=== PATIENT | female | born 1960 | race Hispanic/Latino ===

== ENCOUNTER 2025-04-04 17:02 | Emergency (ER) | payer BC ==
[~2025-04-04] VITALS: Ht 157.5 cm; Wt 72.6 kg
--- NOTE | 2025-04-04 19:12 | NUR ---
PT CARE ASSUMED AT THIS TIME
--- NOTE | 2025-04-04 20:06 | ERN ---
General Chief Complaint: Chest Wall Pain Stated Complaint: CHRONIC HEADACHE, CHEST PRESSUE X 7 MONTHS Time Seen by MD: 17:14 Time Seen by Midlevel: 17:14 Source: patient History of Present Illness Initial Comments 64-year-old female presents to the emergency department evaluation of left-sided neck pain. Patient states her neck pain has been intermittently worsening for the past eight months. Recently she was seen at [facility] for the same complaint. She had a CT scan performed which showed a C2 lytic lesion compressing on the nerve root. She was given pain medication and told to follow up outpatient. She saw specialist [place] but ultimately decided to [place]. He saw her primary care doctor earlier today who reviewed the CT scan findings and encouraged her to report to the ER for further evaluation. On arrival patient is specifically denies any weakness or numbness to her upper extremities. However she has significant amount of pain to the cervical region. Denies any recent falls. Allergies: Coded Allergies: No Known Allergies (Unverified Allergy, Unknown, 04/04/25) Past Medical History Past Medical History: Hypertension Medical History Other: CHRONIC PAIN TO HEAD, NECK, CHEST Past Surgical History: BTL ROS Dictation CONSTITUTIONAL: Negative except for HPI HEAD/FACE: Negative except for HPI EENT: Negative except for HPI RESPIRATORY: Negative except for HPI GASTROINTESTINAL/ABDOMINAL: Negative except for HPI GENITOURINARY: Negative except for HPI MUSCULOSKELETAL: Negative except for HPI INTEGUMENTARY: Negative except for HPI NEUROLOGICAL/PSYCH: Negative except for HPI HEMATOLOGIC/LYMPHATIC: Negative except for HPI All Systems Negative, Except as noted above. 13 point review of systems assessed and all negative except for above. Physical Exam Physical Exam Dictation Vital Signs reviewed General Appearance: Alert, oriented x 3, no acute distress, well developed, nourished. Head and Face: non-traumatic. Eyes: PERRL, pink conjunctivas, eyelid no trauma, anterior chamber with arcus senilis. Ears: Pinnas intact and no signs of trauma or erythema ear canals clear and no discharge TM no erythema Nose: No discharge, no bleeding. Oropharynx: Mouth normal, tongue pink, pharynx clear,no erythema, tonsils no exudates, no abscesses noted, mucous membrane moist Neck: Supple, non-tender, no thyromegaly, no masses, no JVD, no bruits Breast:Deferred Chest:No tenderness, no crepitus, no paradoxical movement, no retractions Lungs:Clear, well-ventilated, symmetric, no rales, no wheezing, no rhonchi, no stridor, good breath sounds bilaterally Heart: Regular rate, regular rhythm, no murmur, no gallops Vascular: no peripheral edema, Abdomen: Soft, positive bowel sounds, nondistended, no guarding, nontender, no rebound, no masses no hepatomegaly, no splenomegaly, no Levine's s ign, no hernias. Rectal: Deferred Genital: Deferred Neurological: Normal speech, motor function intact, sensory function intact Musculoskeletal: There is tenderness to the left paraspinal muscle region of the cervical area, mild midline tenderness to see to region. Extremities: nontender, full range of motion Skin: Color pink, dry, no turgor, no rash, no lacerations, no abrasions, no contusions. Lymphatic: Deferred MDM MDM: 64-year-old female presents to the emergency department evaluation of left- sided neck pain. Patient states her neck pain has been intermittently worsening for the past eight months. Recently she was seen at [facility] for the same complaint. She had a CT scan performed which showed a C2 lytic lesion compressing on the nerve root. She was given pain medication and told to follow up outpatient. She saw specialist [place] but ultimately decided to follow up here in the [facility]. He saw her primary care doctor earlier today who reviewed the CT scan findings and encouraged her to report to the ER for further evaluation. On arrival patient is specifically denies any weakness or numbness to her upper extremities. However she has significant amount of pain to the cervical region. Denies any recent falls. On physical examination the patient does appear to be in mild discomfort secondary to pain. She has some paraspinal muscle tenderness to the left cervical region with some mild cervical tenderness at the level of C2. She has no neurological deficits. She has no weakness or numbness to her upper extremities. Sensation is intact. However, she does appear to be in pain. She is tachycardic which I attribute to the pain. The remainder of her physical examination is unremarkable. I had a lengthy discussion with the patient. My plan was to obtain basic blood work and a CT scan of the cervical region however they have a copy of the CT scan that was performed several days ago which shows lytic lesions measuring 2 cm compressing the nerve root of C2. This was done over at [facility] in [place]. She follow up with her primary care doctor today and was referred to the emergency department for further evaluation. According to the primary care doctor he wanted the patient to get an MRI of the cervical region. I discussed that we do not have a neurosurgeon at this hospital today and they stated that since we do not have a service that she needs they would rather be discharged and they will follow up at another hospital that has Neurosurgery capabilities. I had initially ordered1 mg of Dilaudid with the patient does not want to wait for it and we will be leaving the hospital. She states she will follow up over at [facility] ER. Differential diagnosis: Multiple myeloma, cervical radiculopathy, cervical root impingement There are no social concerns with this patient. Prescription drug management Prescriptions will include: None Medical management and examination interpretation discussions were had by me with other qualified healthcare professionals as indicated for the patient's care. ED Course Orders Procedure Category Date Status Time 12 Lead Ekg Tracing- EKG 04/04/25 Logged Technical 17:20 Hydromorphone 1 Mg PHA 04/04/25 Complete Inj (Dilaudid 1mg Inj 19:30 Current Medications Medications (Trade) Dose Ordered Sig/Jimmie Route PRN Reason Start Time Stop Time Status Last Admin Dose Admin Hydromorphone HCl (DiLAUDid 1MG INJ) 1 mg ONCE ONCE IM 04/04/25 19:30 04/04/25 19:31 DC Vital Signs Date Time Temp Pulse Resp B/P (MAP) Pulse Ox O2 Delivery O2 Flow Rate FiO2 04/04/25 19:21 98.4 107 15 131/57 96 Room Air* 0 21 04/04/25 18:52 98.4 102 13 121/76 96 Room Air* 0 21 04/04/25 17:04 99.0 115 20 140/83 97 Room Air 0 DX & DISP Disposition: Discharge Departure Impression: Primary Impression: Cervical radicular pain Condition: Stable Additional Instructions: The CT scan you provided as with shows lytic lesions to the CT area with nerve root compression. You will need to see a neurosurgeon. Referrals: SANDI LATIF Jr., MD (PCP) MAKAYLA ENRIQUE MD Time of Disposition: 20:06 I have reviewed the case, and I agree with, Diagnosis and Plan I performed the substantive portion of the visit. I have reviewed and personally made and approve the management plan that is documented in the note by myself or the JONATHAN. I acknowledge for responsibility for the patient's management plan. BEATRIZ CHAVIS PAC Apr 04, 2025 20:06
--- NOTE | 2025-04-04 20:09 | NUR ---
PT A&OX4. PT REFUSNG PAIN MEDICATION AT THIS TIME. PT EDUCATED ABOUT THE POSITIVE EFFECTS OF PAIN MEDICATION FOR REPORTED PAIN. PT VERBALIZED UNDERSTANDING OF EDUCATION DONE BY ED RN. PT STILL REFUSING MEDICATION AT THIS TIME AND "JUST WANTS TO GO HOME." ED PA BEATRIZ MADE AWARE. PT CLEARED FOR DISCHARGE PER BEATRIZ VALLE.
[2025-04-04 20:14] VITALS: BP 127/79; PULSE 98; RESP 15; TEMP 98.5; O2SAT 96
--- NOTE | 2025-04-05 07:12 | EKG ---
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
== END 2025-04-04 20:18 | disposition home or self-care (01) ==
LOC: EDH 17:02 → EDBD 17:02 → EDH 20:18
DX: M54.12 Radiculopathy, cervical region (principal); I10 Essential (primary) hypertension; G89.29 Other chronic pain
CPT/HCPCS: 93005; 99284